=== PATIENT | male | born 1965 | race African-American/Black ===

== ENCOUNTER 2021-06-19 03:00 | Emergency (ER) | payer OTHER ==
[~2021-06-19] VITALS: Ht 182.9 cm; Wt 136.0 kg
[2021-06-19] MEDS ORDERED: ASPIRIN 81MG TABLET PO ONE (03:15)
[2021-06-19] MEDS ORDERED: SODIUM CHLORIDE 0.9% 1,000 ML IV ONE (03:15)
[2021-06-19] MEDS ORDERED: METOPROLOL SUCCINATE 50MG ER TABLET PO STA (03:46)
[2021-06-19] MEDS: METOPROLOL TARTRATE 5MG/5ML VIAL IV SCH ×2 (04:03→04:10)
[2021-06-19 04:19] LABS: CHLORIDE 109 mEq/L (98-107)
[2021-06-19 04:25] LABS: ETHANOL BLOOD < 10 mg/dL
[2021-06-19] MEDS ORDERED: FUROSEMIDE 40MG TABLET PO NR (04:30)
[2021-06-19 04:34] LABS: HEMATOCRIT. 44.4 % (42.0-52.0); HEMOGLOBIN. 14.9 g/dL (14.0-18.0); MEAN CORPUSCULAR HEMOGLOBIN 28.9 pg (28.0-32.0); MEAN CORPUSCULAR VOLUME 85.8 fL (80.0-94.0); MEAN PLATELET VOLUME 9.4 fl (7.4-10.4); PLATELET 190 x1000/uL (130-400); RED BLOOD CELL COUNT 5.17 mill/uL (4.7-6.1); RED CELL DISTRIBUTION WIDTH 15.3 % (11.6-14.6)
[2021-06-19 05:59] LABS: *AMPHETAMINES SCREEN URINE NEGATIVE (NEGATIVE); CANNABINOID URINE SCREEN NEGATIVE (NEGATIVE); OPIATES URINE SCREEN NEGATIVE (NEGATIVE); PHENCYCLIDINE URINE SCREEN NEGATIVE (NEGATIVE)
[2021-06-19 06:00] LABS: *BARBITURATES SCREEN URINE NEGATIVE (NEGATIVE); *BENZODIAZEPINES SCREEN URINE NEGATIVE (NEGATIVE); *COCAINE SCREEN URINE NEGATIVE (NEGATIVE); METHADONE URINE SCREEN NEGATIVE (NEGATIVE)
[2021-06-19 06:36] LABS: PLATELET ESTIMATE NORMAL
[2021-06-19] MEDS ORDERED: NITROGLYCERIN 0.4MG TABLET SL SL PRN (07:45)
[2021-06-19] MEDS ORDERED: ZOLPIDEM TARTRATE 5MG TABLET PO PRN (07:45)
[2021-06-19] MEDS ORDERED: CLONIDINE 0.1MG TABLET PO PRN (07:45)
[2021-06-19] MEDS ORDERED: KETOROLAC 15MG/ML VIAL IV PRN (07:45)
[2021-06-19] MEDS ORDERED: ONDANSETRON HCL 4MG/2ML INJ IV PRN (07:45)
[2021-06-19] MEDS ORDERED: IPRATROPIUM/ALBUTEROL 0.5-3(2.5)MG/3ML NEB NEB PRN (07:45)
[2021-06-19] MEDS ORDERED: ACETAMINOPHEN 325MG TABLET PO PRN ×2 (07:45)
[2021-06-19] MEDS ORDERED: DOCUSATE SODIUM 100MG CAPSULE PO PRN (07:45)
[2021-06-19] MEDS ORDERED: GUAIFENESIN 200MG/10ML SUGAR FREE UDC PO PRN (07:45)
[2021-06-19] MEDS ORDERED: MAGNESIUM/ALUMINUM HYDROXIDE/SIMETHICONE 30ML UDC PO PRN (07:45)
[2021-06-19] MEDS ORDERED: FAMOTIDINE 20MG TABLET PO SCH (09:00)
[2021-06-19] MEDS ORDERED: CHOLECALCIFEROL (D3) 1000 UNIT TABLET PO SCH (09:00)
[2021-06-19] MEDS ORDERED: LISINOPRIL 20MG TABLET PO SCH (09:00)
[2021-06-19] MEDS ORDERED: ASCORBIC ACID 500 MG TABLET PO SCH (09:00)
[2021-06-19] MEDS ORDERED: ASPIRIN 325MG EC TABLET PO SCH (09:00)
[2021-06-19] MEDS ORDERED: ZINC SULFATE 220 MG ( 50 ) CAPSULE PO SCH (09:00)
[2021-06-19] MEDS ORDERED: ENOXAPARIN 40MG/0.4ML SYR SUBCUT SCH (09:00)
[2021-06-19 11:00] VITALS: BP 140/92
[2021-06-19] MEDS ORDERED: DILTIAZEM HCL 60MG TABLET PO SCH (12:00)
[2021-06-20 18:40] LABS: FOLIC ACID (FOLATE) SERUM 11.9 ng/mL (>5.38)
== END 2021-06-19 11:09 | disposition left against medical advice (07) ==
LOC: ER 03:00 → EDBD 03:00 → CANBEDREQ 11:05 → ER 11:09
DX: U07.1 COVID-19 (principal); I10 Essential (primary) hypertension; I47.1 Supraventricular tachycardia
CPT/HCPCS: 36415; 71045; 80053; 80305; 80320; 82607; 82746; 83540; 83550; 83615; 83880; 84145; 84443; 84484; 85025; 85379; 87426; 93005; 93970; 96361; 96374; 99291; J3490; J7030; G0480